=== PATIENT | female | born 1940 ===

== ENCOUNTER 2022-05-05 09:06 | Outpatient (CLI) | payer MEDICARE, BC ==
[2022-05-05] MEDS ORDERED: Lidocaine 1% PF 5 ML VIAL ONE (15:30)
[2022-05-05] MEDS ORDERED: Iopamidol 300 61% 50 ML VIAL FS ONE (15:30)
[2022-05-05] MEDS ORDERED: Sodium Chloride 0.9% (PF) 10 ML VIAL ONE (15:30)
[2022-05-05] MEDS ORDERED: EPINEPHrine 1 MG/ML AMP ONE (15:30)
== END 2022-05-05 09:07 | disposition home or self-care (01) ==
LOC: RAD 09:06
PROVIDERS: ATTEND Orthopaedic Surgery
DX: S46.011A Strain of muscle(s) and tendon(s) of the rotator cuff of right shoulder, initial encounter (principal); S12.110K Anterior displaced Type II dens fracture, subsequent encounter for fracture with nonunion; S46.811A Strain of other muscles, fascia and tendons at shoulder and upper arm level, right arm, initial encounter
CPT/HCPCS: 23350; J0171; Q9967